=== PATIENT | male | born 1980 | race Caucasian/White ===

== ENCOUNTER 2018-01-14 14:40 | Outpatient (CLI) | payer BC ==
--- NOTE | 2018-01-14 15:37 | RAD ---
LEFT HIP 2 VIEWS: HISTORY: Hip pain. FINDINGS: There are some arthritic changes of the hip. There is some minimal joint space narrowing superiorly. Some minimal spur formation of the femoral head and neck junction and acetabulum. IMPRESSION: Minimal arthritic changes of the hip. POS: [facility]
--- NOTE | 2018-01-14 15:37 | RAD ---
RIGHT HIP 2 VIEWS: HISTORY: Hip pain. FINDINGS: Minimal arthritic changes that are also present at the right hip. Some spurring along the acetabulum and femoral head and neck junction. IMPRESSION: Minimal arthritic changes of the right hip. POS: [facility]
--- NOTE | 2018-01-14 17:28 | RAD ---
SACRUM AND COCCYX RADIOGRAPHS THREE VIEWS: 01/14/18 PROVIDED CLINICAL HISTORY: Pain without injury. FINDINGS: There is no evidence for fracture or other acute osseous abnormality. There is an approximately 2 cm somewhat rounded area of increased density within the gluteal soft tissues immediately posterior to t he distal sacrum on the lateral view of uncertain etiology and significance. IMPRESSION: 1. No evidence for an acute osseous abnormality. 2. Nonspecific nodular density in the soft tissues overlying the posterior aspects of the sacrum . Consider cross-sectional imaging as indicated. POS: [facility]
--- NOTE | 2018-01-14 17:31 | RAD ---
LUMBAR SPINE FOUR VIEWS: 01/14/18 HISTORY: Low back pain. Compression fracture two years ago. FINDINGS: Five lumbar type vertebral bodies. Vertebral body height is maintained. Disc space heights are preser brandi. There is mild to moderate loss of disc space height at L3-L4. In the neutral position, there is 2.7 mm of retrolisthesis of L3 upon L4. Upon flexion, there is 2.7 mm of retrolisthesis of L3 upon L4 . Upon extension, there is 2.4 mm of retrolisthesis of L3 upon L4. IMPRESSION: Moderate degenerative disc disease at L3-L4. Stable grade I retrolisthesis of L3 upon L4. No significant change upon extension or flexion. POS: [facility]
== END 2018-01-14 14:41 | disposition home or self-care (01) ==
LOC: BICRAD 14:40
PROVIDERS: ATTEND Family Medicine
DX: M25.551 Pain in right hip (principal); M25.552 Pain in left hip; G89.29 Other chronic pain; M54.5 Low back pain; M51.36 Other intervertebral disc degeneration, lumbar region; M43.16 Spondylolisthesis, lumbar region; M16.0 Bilateral primary osteoarthritis of hip; Z87.81 Personal history of (healed) traumatic fracture
CPT/HCPCS: 36415; 72110; 72220; 82306; 82550; 83520; 84443; 85025; 85652; 86038; 86140; 86200; 86225; 86812

== ENCOUNTER 2018-01-21 01:36 | Emergency (ER) | payer BC ==
[2018-01-21 01:59] LABS: #Basophils 0.1 thou/uL (0.0-0.2); #Lymphocytes 2.5 thou/uL (1.20-3.40); #Monocytes 0.7 thou/uL (0.11-0.59); #Neutrophils 8.1 thou/uL (1.40-6.50); %Basophils 0.7 % (0.0-1.0); %Eosinophils 0.2 % (0.0-10.0); %Lymphocytes 21.6 % (21.0-51.0); %Monocytes 6.5 % (0.0-10.0); %Neutrophils 70.9 % (42.0-75.0); Hemoglobin 15.2 g/dL (14.0-18.0); Mean Corpuscular HGB CONC 34.2 g/dL (32.0-36.0); Mean Corpuscular Hemoglobin 30.4 pg (27.0-31.0); Mean Corpuscular Volume 88.9 fL (78.0-98.0); Mean Platelet Volume 8.6 fL (7.4-10.4); Platelet Count 268 thou/uL (130-400); RBC Distribution Width 11.8 % (11.5-14.5); Red Blood Cell (RBC) Count 4.99 mill/uL (4.70-6.10); White Blood Cell (WBC) Count 11.4 thou/uL (4.8-10.8)
[2018-01-21 02:10] LABS: Bilirubin Negative (Negative); Blood, Urine Negative (Negative); Clarity CLOUDY (Clear); Glucose, Urine (Dipstick) 250 mg/dL (Negative); Leukocyte Negative (Negative); Nitrite Negative (Negative); Protein, Urine (Dipstick) Negative (Neg-Trace); Specific Gravity, Urine 1.022 (1.002-1.036); Urobilinogen 0.2 mg/dL (0.2-1.0)
[2018-01-21 02:23] LABS: ALT (SGPT) 21 U/L (8-55); AST (SGOT) 16 U/L (5-34); Albumin 4.7 g/dL (3.5-5.0); Alkaline Phosphatase 53 U/L (40-150); Anion Gap 13 mmol/L (10-20); BUN (Urea Nitrogen) 12 mg/dL (8.9-20.6); Bilirubin, Total 0.4 mg/dL (0.2-1.2); CK (CPK) 157 U/L (30-200); Calc. Creatinine Clearance 0 mL/min (70-130); Calcium 9.5 mg/dL (7.8-10.44); Carbon Dioxide 25 mmol/L (22-29); Chloride 102 mmol/L (98-107); Estimated GFR-MDRD Greater than 90; Globulin 2.9 g/dL (2.4-3.5); Glucose 154 mg/dL (70-105); Lipase 25 U/L (8-78); Potassium 3.6 mmol/L (3.5-5.1); Protein, Total 7.6 g/dL (6.0-8.3); Sodium 136 mmol/L (136-145)
[2018-01-21] MEDS ORDERED: Ondansetron HCl/PF 4 MG/2 ML Vial ONE (03:05)
[2018-01-21] MEDS ORDERED: Morphine 4 MG/ML VIAL ONE (03:39)
[2018-01-21] MEDS ORDERED: Pantoprazole 40 MG VIAL ONE (03:39)
[2018-01-21] MEDS ORDERED: Mag-Al 1200 mg/1200 mg/30 ML UDCUP ONE (04:42)
[2018-01-21] MEDS ORDERED: Lidocaine Viscous Sol 2% 15 ml UD Cup ONE (04:42)
--- NOTE | 2018-01-21 07:19 | CT ---
CT OF THE ABDOMEN AND PELVIS WITH IV CONTRAST: Date: 01/21/18 INDICATION: History of abdominal pain after prolonged course of Motrin for low back pain. Patient reports some bl ood per rectum. COMPARISON: None. FINDINGS: Lung bases are clear. No focal hepatic lesion is evident. There is a calcified granuloma within the spleen. The pancreas, a drenal glands, and kidneys are normal appearing. There is some mild suggested wall thickening involving portions of the gastric body and antrum, which can be related to underdistention; however, gastritis could have a similar appearance. Small bowel h as a normal caliber. There is a normal appendix in the right lower quadrant of the abdomen. The rectu m and perirectal soft tissues are unremarkable. There is a fat-containing right inguinal hernia and umbilical hernia. No free fluid is evident. The b ladder is unremarkable. There is mild scattered degenerative and osteoarthritic change. IMPRESSION: 1. Mild suggested wall thickening involving the body and antrum of the stomach, which can be related to underdistention; however, gastritis can have a similar appearance. There is no evidence to sugges t a focal full thickness perforation. 2. Findings of prior granulomatous disease. 3. Fat-containing umbilical and right inguinal hernia. POS: [facility]
[2018-01-21] MEDS ORDERED: ISOVUE-370 76%-LOCM 1 ML ONE (09:39)
== END 2018-01-21 04:52 | disposition home or self-care (01) ==
LOC: ERS 01:36
DX: K29.70 Gastritis, unspecified, without bleeding (principal); K21.9 Gastro-esophageal reflux disease without esophagitis; E78.2 Mixed hyperlipidemia; I10 Essential (primary) hypertension; F32.9 Major depressive disorder, single episode, unspecified; Z79.899 Other long term (current) drug therapy
CPT/HCPCS: 36415; 74177; 80053; 81003; 82274; 82550; 83605; 83690; 85025; 87086; 96374; 96375; C9113; J2270; J2405

== ENCOUNTER 2018-01-28 15:28 | Outpatient (CLI) | payer BC ==
--- NOTE | 2018-01-28 17:53 | MRI ---
LUMBAR SPINE MRI NONCONTRAST: 01/28/18 INDICATION: Low back pain. Left lower extremity radiculopathy. Patient reports history of prior fracture. FINDINGS: The conus medullaris is normal in morphology, terminating at the L1-2 level. There is straightening o f the normal lumbar lordosis. End plate degenerative signal alteration compatible with Modic type II degenerative change is seen with associated disc space narrowing of L3-4. Remaining disc space height s are maintained. There is no significant central canal or neural foraminal stenosis of the L1-2, L2-3, L4-5 and L5-S1 levels. L3-4: There is broad based disc osteophyte with moderate narrowing of the central canal. There is min imal narrowing of the left neural foramen. No high grade right foraminal stenosis. There is mild bilateral degenerative hypertrophy of the facet joints. 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 IMPRESSION: Disc degenerative disease at the L3-4 level with moderate central canal stenosis. POS: [facility]
== END 2018-01-28 15:29 | disposition home or self-care (01) ==
LOC: SCSMRI 15:28
PROVIDERS: ATTEND Family Medicine
DX: M51.16 Intervertebral disc disorders with radiculopathy, lumbar region (principal); M43.16 Spondylolisthesis, lumbar region; M48.061 Spinal stenosis, lumbar region without neurogenic claudication
CPT/HCPCS: 72148

== ENCOUNTER 2018-02-14 06:48 | Day surgery (SDC) | payer BC ==
[2018-02-12 15:53] VITALS: BMI 28.8
[2018-02-14] MEDS ORDERED: CEFAZOLIN 2 GM/50 ML BAG ONE (07:32)
[2018-02-14] MEDS ORDERED: Bupivacaine/Epinephrine 0.25% 30 ML VIAL ONE (08:37)
[2018-02-14] MEDS ORDERED: Fentanyl 100 MCG/2 ML VIAL ONE ×2 (08:44→10:21)
--- NOTE | 2018-02-14 10:22 | OP ---
PREOPERATIVE DIAGNOSIS: Right inguinal hernia. SURGEON: Deep Fermin M.D. PROCEDURE PERFORMED: Right inguinal hernia repair with mesh. INDICATIONS: A 37-year-old male who had a painful right groin bulge and was found to have a hernia. FINDINGS: Right indirect inguinal hernia. PROCEDURE IN DETAIL: After informed consent was obtained, the patient was taken to the operating cruz m and given general mask anesthesia. He was placed in the supine position. His groin was prepped an d draped in usual fashion. Local anesthesia infiltrated subcutaneously and deep. A transverse right inguinal incision was performed. The subcu divided sharply. The fascia of the external oblique was incised in direction of its fibers through the external ring. Spermatic cord isolated with a Penros e drain. The floor was inspected. No hernia there. Cremasteric fibers were . Hernia sac was found. It was dissected from surrounding cord structures and reduced. Reduction maintained util izing a PHS hernia system placed in the preperitoneal space. Anterior, it was laid out, sutured to t he pubic tubercle medially. Laterally, it was tucked under the external oblique fascia and a notch w as cut out for the spermatic cord. Hemostasis was assured. The cord placed anatomically. The exter nal oblique fascia closed over the cord with a running 3-0 Vicryl. Lissy's closed with interrupted 3-0 Vicryl and the skin closed with a running subcuticular 4-0 Rapide. Steri-Strips applied. Steril e bandage applied. The patient tolerated the procedure well and was transferred to recovery in good condition. Sponge and needle count verified correct x2.
--- NOTE | 2018-02-17 11:46 | EKG ---
Test Reason : PREOP Blood Pressure : / mmHG Vent. Rate : 067 BPM Atrial Rate : 067 BPM P-R Int : 148 ms QRS Dur : 104 ms QT Int : 378 ms P-R-T Axes : 053 095 045 degrees QTc Int : 399 ms Normal sinus rhythm Rightward axis Borderline ECG No previous ECGs available Confirmed by ELIDIA EHNDERSON ([id number]) on 02/17/2018 11:46:22 AM Referred By: KOBY Confirmed By:ELIDIA HENDERSON
== END 2018-02-14 12:05 | disposition home or self-care (01) ==
LOC: SDC 06:48
PROVIDERS: ATTEND Surgery
PROC: 0YU50JZ Supplement Right Inguinal Region with Synthetic Substitute, Open Approach (ICD-10-PCS; principal; 2018-02-14)
DX: K40.90 Unilateral inguinal hernia, without obstruction or gangrene, not specified as recurrent (principal); Z79.899 Other long term (current) drug therapy; Z91.02 Food additives allergy status
CPT/HCPCS: 93005; 93010; 96374; C1781; J3010

== ENCOUNTER 2018-04-28 13:03 | Outpatient (CLI) | payer BC ==
--- NOTE | 2018-04-28 14:42 | RAD ---
FOUR VIEWS LUMBAR SPINE: HISTORY: Low back pain. Previous back injury from fall 10 years ago. FINDINGS: There are 5 lumbar-type vertebral bodies. Lumbar spine vertebral body height is maintained. There i s no fracture. In the neutral position, there is approximately 2 mm of retrolisthesis of L3 upon L4. Upon flexion, there is 2 mm of retrolisthesis of L3 upon L4. Upon extension, there is approximatel y 1 mm retrolisthesis of L3 upon L4. There is moderate loss of disk space height and osteophyte form ation at L3-L4. IMPRESSION: 1. Moderate degenerative change at L3-L4. 2. Grade I anterolisthesis of L3 upon L4 without significant change upon extension or flexion. POS: C
== END 2018-04-28 13:04 | disposition home or self-care (01) ==
LOC: TBSIIMAG 13:03
PROVIDERS: ATTEND Surgery
DX: M54.5 Low back pain (principal); M47.816 Spondylosis without myelopathy or radiculopathy, lumbar region; M43.16 Spondylolisthesis, lumbar region
CPT/HCPCS: 72120

== ENCOUNTER 2018-08-12 15:56 | Outpatient (CLI) | payer BC ==
--- NOTE | 2018-08-12 16:25 | ULT ---
Left lower extremity venous Doppler ultrasound evaluation. HISTORY: Left calf pain for 4 days. Multiple longitudinal and transverse images of the left lower extremity venous systems obtained using multi hertz linear array transducer. Real-time, color flow and spectral waveform Doppler analysis used to evaluate the left lower extremity venous system. The left common femoral vein, superficial femoral vein, femoral profunda, popliteal vein, posterior t ibial veins and left greater saphenous vein are all patent. IMPRESSION: No evidence of left lower extremity deep venous thrombosis. Transcribed Date/Time: 08/12/2018 4:45 PM
== END 2018-08-12 15:57 | disposition home or self-care (01) ==
LOC: BICULT 15:56
PROVIDERS: ATTEND Family Medicine
DX: M79.662 Pain in left lower leg (principal); R26.2 Difficulty in walking, not elsewhere classified

== ENCOUNTER 2018-08-28 13:12 | Outpatient (CLI) | payer BC ==
--- NOTE | 2018-08-28 14:34 | CT ---
CT Lumbar Spine WO Con History: [Severe low back pain] Comparison: Lumbar spine radiograph 04/28/2018. MRI 01/28/2018 Findings: The aortic contour is nonaneurysmal. No retroperitoneal adenopathy. No hydronephrosis. Paraspinal musculature is symmetric. No acute fracture or malalignment of the lumbar spine. Spinous processes are intact. 5 nonrib-bearing lumbar type vertebra. Levels are as follows: L1/L2: Normal disc. No neural foraminal or spinal canal narrowing. L2/L3: Normal disc. No neural foraminal or spinal canal narrowing. L3/L4: Circumferential disc osteophyte complex. There is moderate to severe left and moderate right n eural foraminal narrowing. Abutment of the left exiting nerve root. The spinal canal is narrowed to approximately 6 mm. Mild facet arthrosis at this level. L4/L5: Low-grade bilateral subfrontal disc osteophyte complexes. Mild bilateral neural foraminal narr owing. L5/S1: There is a central and bilateral paracentral broad-based disc bulge posteriorly. No neural for aminal or spinal canal narrowing. Impression: Degenerative disease centered at L3/L4 with spinal canal and neural foraminal narrowing.
--- NOTE | 2018-08-28 14:54 | MRI ---
MRI Cervical Spine WO Con History: [M 48.02. Cervical stenosis of spinal canal.] Comparison: None. Findings: Paraspinal musculature is symmetric. No cervical adenopathy. Cerebral tonsils terminate at the level of the foramen magnum. No marrow infiltrative process. Levels are as follows: C2/C3: Mild uncinate process process hypertrophy. No neural foraminal or spinal canal narrowing. C3/C4: Mild disc dehydration. No neural foraminal or spinal canal narrowing. C4/C5: Moderate left and mild right uncinate process hypertrophy. Moderate left and mild right neura l foraminal narrowing. C5/C6: Mild disc dehydration. Moderate uncinate process hypertrophy, worse on the right. Moderate rig ht and mild left neural foraminal narrowing. C6/C7: There is a right paracentral and lateral recess disc herniation. This does abut the right exit ing nerve root. Mild uncinate process hypertrophy. Circumferential degenerative disc space height loss. Early Modic type I endplate changes. The spinal canal measures approximately 9 mm. C7/T1: Normal disc. No neural foraminal or spinal canal narrowing. Impression: Disc herniation at C6/C7 with abutment of the right exiting nerve root with effacement of ventral CSF space.
== END 2018-08-28 13:13 | disposition home or self-care (01) ==
LOC: SCSCT 13:12
PROVIDERS: ATTEND Specialist
DX: M48.02 Spinal stenosis, cervical region (principal); M43.16 Spondylolisthesis, lumbar region; M47.816 Spondylosis without myelopathy or radiculopathy, lumbar region; M48.061 Spinal stenosis, lumbar region without neurogenic claudication; M50.223 Other cervical disc displacement at C6-C7 level
CPT/HCPCS: 72131; 72141

== ENCOUNTER 2019-01-28 12:35 | Outpatient (CLI) | payer BC ==
--- NOTE | 2019-01-28 12:53 | RAD ---
Radiograph bilateral sacroiliac joints 3 views: DATE: 01/28/2019 HISTORY: 38-year-old male with bilateral sacroiliitis. Left-sided pain worse than right. FINDINGS: Bilateral SI joints spaces are maintained. No evidence of erosions. No high-grade sclerosis or large osteophytes. IMPRESSION: Negative
== END 2019-01-28 12:36 | disposition home or self-care (01) ==
LOC: BICRAD 12:35
PROVIDERS: ATTEND Internal Medicine Rheumatology
DX: M46.1 Sacroiliitis, not elsewhere classified (principal)
CPT/HCPCS: 72202

== ENCOUNTER 2019-02-16 20:30 | Outpatient (CLI) | payer BC | END 2019-02-16 20:31 | disposition home or self-care (01) | LOC: SLEEPLAB 20:30 | PROVIDERS: ATTEND Internal Medicine | DX: G47.33 Obstructive sleep apnea (adult) (pediatric) (principal); R06.83 Snoring; F32.9 Major depressive disorder, single episode, unspecified; I10 Essential (primary) hypertension; F90.9 Attention-deficit hyperactivity disorder, unspecified type | CPT/HCPCS: 95810 ==

== ENCOUNTER 2019-03-17 20:30 | Outpatient (CLI) | payer BC | END 2019-03-17 20:31 | disposition home or self-care (01) | LOC: SLEEPLAB 20:30 | PROVIDERS: ATTEND Internal Medicine | DX: G47.33 Obstructive sleep apnea (adult) (pediatric) (principal); R06.83 Snoring; F32.9 Major depressive disorder, single episode, unspecified | CPT/HCPCS: 95811 ==

== ENCOUNTER 2019-06-10 13:47 | Outpatient (CLI) | payer BC ==
--- NOTE | 2019-06-10 14:01 | RAD ---
EXAM: Two views chest PROVIDED CLINICAL HISTORY: Cough for one week. COMPARISON: None FINDINGS: Cardiac silhouette and pulmonary vasculature are within normal limits. The lungs are clear. The osse ous structures have a normal appearance. IMPRESSION: No acute cardiopulmonary process.
== END 2019-06-10 13:48 | disposition home or self-care (01) ==
LOC: BICRAD 13:47
PROVIDERS: ATTEND Internal Medicine
DX: R05 Cough (principal)
CPT/HCPCS: 71046

== ENCOUNTER 2020-01-20 09:23 | Outpatient (CLI) | payer BC ==
--- NOTE | 2020-01-20 12:29 | ULT ---
GALLBLADDER ULTRASOUND: Date: 01/20/2020 HISTORY: Elevated LFTs. FINDINGS: The liver demonstrates increased echogenicity consistent with fatty infiltration. The left lobe of th e liver is not satisfactorily visualized. No shadowing gallstones, gallbladder wall thickening, or pe richolecystic fluid is seen. Nonshadowing, nonmobile echogenic foci consistent with polyps are seen a rising from the wall of the gallbladder measuring up to 7.0 mm. The pancreas is not satisfactorily visualized due to overlying bowel gas. The right kidney is normal. no free fluid is noted. The common duct measures 4.0 mm in diameter. No free fluid is seen in Moriso n's pouch. IMPRESSION: 1. Fatty liver. 2. Gallbladder polyps measuring up to 7.0 mm. Surgical consultation is recommended. POS: [facility]
== END 2020-01-20 09:24 | disposition home or self-care (01) ==
LOC: SCSULT 09:23
PROVIDERS: ATTEND Internal Medicine
DX: R74.01 Elevation of levels of liver transaminase levels (principal); K76.0 Fatty (change of) liver, not elsewhere classified; K82.4 Cholesterolosis of gallbladder
CPT/HCPCS: 76705

== ENCOUNTER 2020-03-25 12:20 | Outpatient (CLI) | payer BC ==
--- NOTE | 2020-03-25 12:59 | RAD ---
XR Shoulder Lt 3 View STANDARD History: Shoulder pain Comparison: None. Findings: No acute fracture or malalignment. Soft tissues are normal. Impression: No acute osseous abnormality.
--- NOTE | 2020-03-25 13:00 | RAD ---
XR Elbow Lt 4 View STANDARD History: Elbow pain Comparison: None. Findings: No acute fracture or malalignment. Small sublime tubercle osteophyte. Impression: No acute osseous abnormality.
== END 2020-03-25 12:21 | disposition home or self-care (01) ==
LOC: BICRAD 12:20
PROVIDERS: ATTEND Internal Medicine
DX: M25.512 Pain in left shoulder (principal); M25.522 Pain in left elbow

== ENCOUNTER 2020-11-04 05:52 | Day surgery (SDC) | payer BC ==
[2020-11-03 08:50] VITALS: BMI 32.0
[2020-11-04] MEDS ORDERED: cefOXitin Sodium/Dextrose 2 GM/50 ML BAG ONE (06:14)
[2020-11-04] MEDS ORDERED: Fentanyl 100 MCG/2 ML VIAL ONE ×5 (06:33→10:02)
[2020-11-04] MEDS ORDERED: Lidocaine 4% Topical Sol 50 ML BOT ONE (06:45)
[2020-11-04] MEDS ORDERED: Bupivacaine 0.25% HCL 30 ML VIAL ONE (06:55)
[2020-11-04] MEDS ORDERED: EPINEPHrine 1 MG/ML AMP ONE (06:55)
[2020-11-04] MEDS ORDERED: Iothalamate Meglumine 60% 50 ML VIAL FS ONE (07:29)
[2020-11-04] MEDS ORDERED: Glycopyrrolate 0.2 MG/ML 5 ML SYRINGE ONE ×2 (08:07)
[2020-11-04] MEDS ORDERED: Ondansetron PF 4 MG/2 ML Vial ONE (08:07)
[2020-11-04] MEDS ORDERED: Lidocaine 1% PF 5 ML VIAL ONE (08:07)
[2020-11-04] MEDS ORDERED: Rocuronium Bromide 10 MG/ML (10ML VIAL) ONE (08:07)
[2020-11-04] MEDS ORDERED: PROPOFOL 200 MG/20 ML VIAL ONE (08:07)
[2020-11-04] MEDS ORDERED: ePHEDrine 50 MG/ML VIAL ONE (08:07)
[2020-11-04] MEDS ORDERED: Dexamethasone 20 MG/5 ML VIAL ONE (08:07)
[2020-11-04] MEDS ORDERED: Promethazine HCl 25 MG/ML VIAL ONE (10:02)
[2020-11-04] MEDS ORDERED: HYDROmorphone 0.5 MG/0.5 ML SYRINGE ONE ×2 (10:30→10:46)
[2020-11-04] MEDS ORDERED: Ketorolac Tromethamine 30 MG/ML VIAL ONE (10:35)
== END 2020-11-04 12:25 | disposition home or self-care (01) ==
LOC: SDC 05:52
PROVIDERS: ATTEND Surgery
PROC: 0WQF0ZZ Repair Abdominal Wall, Open Approach (ICD-10-PCS; principal; 2020-11-04)
PROC: BF131ZZ Fluoroscopy of Gallbladder and Bile Ducts using Low Osmolar Contrast (ICD-10-PCS; principal; 2020-11-04)
PROC: 0FT44ZZ Resection of Gallbladder, Percutaneous Endoscopic Approach (ICD-10-PCS; principal; 2020-11-04)
DX: K81.1 Chronic cholecystitis (principal); K42.9 Umbilical hernia without obstruction or gangrene; K66.0 Peritoneal adhesions (postprocedural) (postinfection); E78.5 Hyperlipidemia, unspecified; E78.00 Pure hypercholesterolemia, unspecified; G47.33 Obstructive sleep apnea (adult) (pediatric); Z79.899 Other long term (current) drug therapy; Z88.6 Allergy status to analgesic agent; Z91.018 Allergy to other foods
CPT/HCPCS: 47532; 88304; 93005; 93010; J0171; J0694; J1100; J1170; J1885; J2405; J2550; J2704; J3010; J3490; Q9961; S0020

== ENCOUNTER 2021-02-13 12:46 | Outpatient (CLI) | payer BC | END 2021-02-13 12:47 | disposition home or self-care (01) | LOC: TBSIIMAG 12:46 | PROVIDERS: ATTEND Psychiatry & Neurology Neurology | DX: M54.2 Cervicalgia (principal); M47.812 Spondylosis without myelopathy or radiculopathy, cervical region; M48.02 Spinal stenosis, cervical region | CPT/HCPCS: 72141 ==